=== PATIENT | male | born 1940 | race Caucasian/White ===

== ENCOUNTER → 2021-03-29 | Outpatient (CLI) | payer MEDICARE, BC ==
[~2021-03-29] MED LIST: ASPIRIN E.C. 8181 MG PO; CALCIUM1 CAP PO; DIOVAN/HCT 12.51 TAB PO; EPA FISH OIL1000 MG PO; MULTIPLE VITAMI1 CAP PO; SYNTHROID0.125 MG/T PO
== END ==
LOC: COL.RAD 06:53
DX: R10.13 Epigastric pain (principal); R14.0 Abdominal distension (gaseous)

== ENCOUNTER 2022-07-19 10:50 | Inpatient (IN) | payer MEDICARE, BC ==
[~2022-07-19] VITALS: Ht 172.7 cm; Wt 70.9 kg
[~2022-07-19 10:50] MED LIST changes: +CALCIUM 600 MG1 EAC2 PO; -CALCIUM1 CAP PO; -MULTIPLE VITAMI1 CAP PO; +MULTIPLE VITAMI1 TA5 PO
[2022-07-31 12:04] VITALS: BP 131/73; PULSE 67; TEMP 97.3
--- NOTE | 2022-07-31 12:15 | NUR ---
The patient ambulated back to [place] 2 independenlty using a steady gait and appeared to tolerate the activity well. Vital signs were obtained. Consent signed. 18G IV started in left hand on second attempt, LR Infusing without difficulty. Blood obtained from IV start for type and screen as ordered. Call light is within reach. at bedside. Warm blanket provided. Denies any further needs.
[2022-07-31] MEDS ORDERED: SYNTHROID0.1 MG/TAB PO (12:27)
[2022-07-31] MEDS ORDERED: DIOVAN320 MG PO (12:28)
[2022-07-31] MEDS ORDERED: MASON NATURAL1200 MG PO (12:29)
[2022-07-31] MEDS ORDERED: VITAMIN C500 MG PO (12:30)
--- NOTE | 2022-07-31 12:30 | NUR ---
The patient was taken over via cart to the recovery room to have a nerve block placed prior to surgery. The patient's chart was sent with him. The patient's belongings will be taken over to the recovery room and will be transferred with the patient to the 3rd floor post operatively.
[2022-07-31] MEDS ORDERED: AMITRIPTYLINE H25 M1 PO (12:31)
[2022-07-31] MEDS ORDERED: IRON TABLETS325 MG PO (12:32)
[2022-07-31 17:00] VITALS: BP 117/62; PULSE 54; TEMP 97.5
[2022-07-31 17:15] VITALS: BP 116/64; PULSE 53; TEMP 97.5
--- NOTE | 2022-07-31 17:22 | NUR ---
PT TO ROOM 346 PER BED WITH REPORT FROM PACU @5447, PT IS A/O X3. ABDOMINAL INCISION CDI WITH GAUZE AND TAPE OVER MIDLINE OPEN INCISION. BANDAIDS OVER LAP SITES. SCDS PLACED BILATERALLY, ORIENTED PT AND TO ROOM AND ORDERING MEALS. VSS, ASSESSMENTS COMPLETE.
[2022-07-31 17:32] VITALS: BP 109/66; PULSE 53; TEMP 98
[2022-07-31 17:45] VITALS: BP 122/64; PULSE 54; TEMP 98
[2022-07-31 18:15] VITALS: BP 120/60; PULSE 54; TEMP 98
[2022-08-01] VITALS (7 sets, daily range): BP systolic 96–114; BP diastolic 50–67; PULSE 43–105; TEMP 97.5–99.1
--- NOTE | 2022-08-01 07:05 | NUR ---
resting in bed, bedside shift report received from KEON Coelho
[2022-08-01 07:13] LABS: HEMOGLOBIN 10.3 g/dl (13.5-18.0); MEAN CELL VOLUME 87 fl (80.0-100.0); MEAN CORPUSCULAR HEMOGLOBIN 30 pg (27-31); MEAN CORPUSCULAR HGB CONC 34 g/dl (33.0-37.0); MEAN PLATELET VOLUME 10.5 fl (7.4-10.4); PLATELET COUNT 200 K/mm3 (130-400); RED BLOOD COUNT 3.47 M/mm3 (4.20-5.60); REDCELL DISTRIBUTION WIDTH-CV 14.5 % (11.5-14.5)
[2022-08-01 07:16] LABS: HEMATOCRIT 30.3 % (42.0-52.0)
[2022-08-01 07:20] LABS: CALCIUM 8.3 mg/dL (8.4-10.2); CREATININE, serum 1.45 mg/dL (0.72-1.25); POTASSIUM 4.5 mmol/L (3.5-4.5)
[2022-08-01 08:03] LABS: BAND 13 % (0-10); LYMPHOCYTE 1 % (20.0-51.0); NEUTROPHILS 85 % (42.0-75.2); PLATELET ESTIMATE NORMAL (NORMAL)
--- NOTE | 2022-08-01 08:15 | NUR ---
resting and repositioned in bed, full assessment completed, see interventions for further info, O2 sat 89% on room air, O2 on at 1L/NC and will monitor
--- NOTE | 2022-08-01 10:00 | NUR ---
resting in bed, mcclure catheter discontinued, tolerated well
--- NOTE | 2022-08-01 10:22 | NUR ---
PROFESSOR OF MATHEMATICS in and assisted him out of bed and ambulating in [place], then back to room and sitting up in recliner
--- NOTE | 2022-08-01 10:29 | NUR ---
Initial visit; Patient thanked Entry Level Paralegal for looking in on him and offering God's blessings. Entry Level Paralegal will follow up .
--- NOTE | 2022-08-01 11:44 | NUR ---
remains resting in chair with at bedside, will order lunch in a while
--- NOTE | 2022-08-01 12:05 | NUR ---
IV fluids stopped and to INT
--- NOTE | 2022-08-01 13:18 | NUR ---
bedside shift report given to KEON Recinos
--- NOTE | 2022-08-01 14:13 | NUR ---
Report received from Debby HERBERT. Pt. sitting up in recliner eating a liquid diet tray. Pt. denies pain/discomfort. Call light is in his reach
--- NOTE | 2022-08-01 14:13 | NUR ---
Pt sitting in recliner. He has just finished his lunch tray. He continues to deny pain/discomfort. Midline abd incision covered by air strip dressing that is CDI. Pt. denies additional needs at this time. Call light is in his reach
--- NOTE | 2022-08-01 14:16 | NUR ---
Pt up to ambulate in hallway with PTC
--- NOTE | 2022-08-01 15:57 | NUR ---
Pt up to ambulate in hallway with nurse. Encouraged pt. to try to urinate as mcclure was removed approx 6 hours ago. Will bladder scan if unable to void
--- NOTE | 2022-08-01 16:05 | NUR ---
paste worker met with patient to complete intake and discuss discharge plan. Patient reports that he lives at home with his Chary ([phone]) in [place]. Prior to surgery he reports to being fully independent with his ADL's and does not utilize any DME to assist with mobility. 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 He has access to a FWW due to a previous knee replacement, but does not utilize it. He has no home oxygen needs. PCP is and he utilizes [facility] for prescriptions. Patient does have a DPOA-HC/living will established listing his and a copy can be found in his paper chart. Patient is planning on returning home once medically ready. Discharge plan: Home
--- NOTE | 2022-08-01 16:45 | NUR ---
Pt was able to "dribble" some urine output and had a medium sized bowel movement. Bladder scan done. Post void residual = 130 mL. Encouraged pt to keep hydrating and trying to urinate. Pt reports he is belching and passing flatus. Airstrip dressing to mid abd. incision remains CDI. No pain reported. and daughter are at the bedside. Pt. denies additional needs. Call light is in his reach
--- NOTE | 2022-08-01 18:28 | NUR ---
Pt sitting up in bed watching television. He denies pain/discomfort. Abd. dressing remains CDI. Pt. denying nausea. Denies additional needs. Call light is in his reach. Encouraged pt to continue to hydrate and to call for assistance to the bathroom if he needs to urinate
--- NOTE | 2022-08-01 20:44 | NUR ---
PT A&OX4 RESTING IN BED. PT DENIES PN. ASSESSMENT COMPLETE. ABD INCISION CDI. PT REPORTS BELCHING AND URINATING. TOLERATED DINNER. VS STABLE. LW INT PATENT. NO NEEDS AT THIS TIME. CALL LIGHT WITHIN REACH.
[2022-08-02 05:15] VITALS: BP 103/45; PULSE 104; TEMP 98.5
--- NOTE | 2022-08-02 06:55 | NUR ---
Shift report received from carbon sequestration plant operator RN
--- NOTE | 2022-08-02 06:59 | NUR ---
Shift report received from slot shift supervisor RN
[2022-08-02 07:17] LABS: HEMATOCRIT 25.5 % (42.0-52.0); HEMOGLOBIN 8.7 g/dl (13.5-18.0)
[2022-08-02 07:20] LABS: CALCIUM 7.7 mg/dL (8.4-10.2); CREATININE, serum 1.52 mg/dL (0.72-1.25); POTASSIUM 4.6 mmol/L (3.5-4.5)
[2022-08-02 08:33] VITALS: BP 121/57; PULSE 66; TEMP 98.6
--- NOTE | 2022-08-02 08:49 | NUR ---
Pt was sitting up eating breakfast and reported that he did not sleep well last night d/t frequent hiccups. He reports feeling slight nausea this morning. Hiccups have resolved. PRN Zofran given approx 30 minutes ago.
--- NOTE | 2022-08-02 09:09 | NUR ---
Follow-up visit; Murali having breakfast. He says he hasn't been sleeping very well but seems to be doing as well as can be expected. He thanked Import/Export Analyst for stopping and keeping him in her prayers.
--- NOTE | 2022-08-02 09:30 | NUR ---
Pt. reports that nausea is slowly resolving. Encouraged pt to rest/sleep this morning since he did not sleep well during the night. Pt. agreeable. Pt. will call for assistance if needed. Call light is in his reach
--- NOTE | 2022-08-02 10:32 | NUR ---
Pt. up to ambulate in [place] w/ FWW. He reports that nausea is still present but is still getting better. He reports that his pain level is a little higher today but declines a prn pain pill. He remains on scheduled Tylenol and Motrin. Diet changed to low fiber per dietitian. Pt. denies additional needs. Call light is in his reach.
[2022-08-02 12:16] VITALS: BP 117/56; PULSE 67; TEMP 98.2
[2022-08-02] MEDS ORDERED: TYLENOL 500MG500 MG PO (12:27)
[2022-08-02] MEDS ORDERED: ROXICODONE 55 MG/TAB PO (12:28)
--- NOTE | 2022-08-02 13:15 | NUR ---
Order received to remove abd. dressings and okay for pt. to shower. Midline angeles noted. Single angeles noted to LLQ, LUQ, and RLQ. Incisions are CDI and w/out redness. Pt. showered independently.
--- NOTE | 2022-08-02 13:34 | NUR ---
Pt having coffee ground emesis x 1. Pt. reports feeling nausea, no abd. pain. Dr. Glover notified. New orders received for H/H and Protonix IV (see emar for details) Low fiber dc'd and clears diet restarted per order
[2022-08-02 13:54] LABS: HEMATOCRIT 27.8 % (42.0-52.0); HEMOGLOBIN 9.3 g/dl (13.5-18.0)
--- NOTE | 2022-08-02 14:20 | NUR ---
Pt resting supine in bed. HOB elevated to 30 degrees. He denies abd. pain. No slight nausea. No further emesis at this time
--- NOTE | 2022-08-02 15:40 | NUR ---
Pt lying awake in bed. Pt. stated that he went to the bathroom and had another BM. BM noted on fitted sheet and on the back of pt's boxer. Bed sheet changed and pt assisted with changing into clear boxers. Pt. continues to deny abd. pain. Nausea comes and goes. No further emesis. Pt. denies additional needs. Call light is in his reach
--- NOTE | 2022-08-02 16:11 | NUR ---
Patient presented with MCR.IM form. Education provided and patient verbalizes his agreement with discharge plan. Signed original placed in the patient's chart and copy provided back to the patient.
[2022-08-02 16:39] VITALS: BP 106/61; PULSE 69; TEMP 98
--- NOTE | 2022-08-02 17:30 | NUR ---
Pt sitting up in bed eating his clear liquid dinner. He reports feeling "good" at this time. No further ememsis so far. He is not currently feeling any nausea. No abd. pain. Will continue to monitor
[2022-08-02 19:26] LABS: HEMATOCRIT 26.2 % (42.0-52.0); HEMOGLOBIN 8.8 g/dl (13.5-18.0)
[2022-08-02 20:16] VITALS: BP 106/49; PULSE 59; TEMP 98.3
--- NOTE | 2022-08-02 20:30 | NUR ---
PT SITTING IN RECLINER AT BEDSIDE. DENIES NAUSEA. HAS HICCUPS. INDEPENDENT IN ROOM. PT AWARE HIS DIET WAS DECREASED TO CLEAR LIQUIDS. REPORTS DARK BROWN LOOSE STOOLS.
--- NOTE | 2022-08-02 21:30 | NUR ---
PT IN BED, ABD WITH MIDLINE INCISION APPRAISAL ANALYST WITH OLAF INTACT. HAS 5 ROBOTIC SITES STAPLED AND OPEN TO AIR. PT HAS GOOD BOWEL SOUNDS. DENIES NAUSEA. HS MED GIVEN. INT TO LEFT HAND FLUSHES WELL.
[2022-08-02 23:57] VITALS: BP 108/51; PULSE 61; TEMP 97.6
--- NOTE | 2022-08-03 01:30 | NUR ---
IV PROTONIX GIVEN. HGB=9.3.
[2022-08-03 01:54] LABS: HEMATOCRIT 27.3 % (42.0-52.0); HEMOGLOBIN 9.3 g/dl (13.5-18.0)
[2022-08-03 03:37] VITALS: BP 111/54; PULSE 65; TEMP 98.5
--- NOTE | 2022-08-03 06:32 | NUR ---
PT UP TO BATHROOM WITH WALKER, GAIT STEADY. AM MEDS GIVEN.
[2022-08-03 07:27] VITALS: BP 111/57; PULSE 65; TEMP 97.6
[2022-08-03 07:57] LABS: HEMATOCRIT 22.9 % (42.0-52.0); HEMOGLOBIN 7.9 g/dl (13.5-18.0)
--- NOTE | 2022-08-03 08:23 | NUR ---
SHIFT ASSEMSSMENT PERFORMED. ABD INCISION SITE CDI AND OPEN TO AIR, BOWEL SOUNDS ACTIVE X4 QUADRANTS. PT DENIES PAIN. CALL LIGHT WIHTIN REACH.
--- NOTE | 2022-08-03 10:15 | NUR ---
AGREE WITH LUCERO' POWER TRUCK DRIVER ASSESSMENTS.
[2022-08-03 12:05] VITALS: BP 123/58; PULSE 68; TEMP 97.5
[2022-08-03 13:55] LABS: HEMATOCRIT 26.5 % (42.0-52.0); HEMOGLOBIN 8.7 g/dl (13.5-18.0)
[2022-08-03 16:08] VITALS: BP 118/52; PULSE 65; TEMP 97.5
[2022-08-03 19:49] VITALS: BP 115/54; PULSE 74; TEMP 97.7
[2022-08-03 19:50] LABS: HEMATOCRIT 28.1 % (42.0-52.0); HEMOGLOBIN 9.2 g/dl (13.5-18.0)
--- NOTE | 2022-08-03 20:30 | NUR ---
PT ASKING TO TAKE A SHOWER. INT TO LEFT HAND COVERED, SHOWER SET UP. PT REPORTS ABILITY TO SHOWER HIMSELF.
--- NOTE | 2022-08-03 21:45 | NUR ---
PT SITTING IN CHAIR AT BEDSIDE. DENIES PAIN. INT TO LEFT HAND FLUSHED WITHOUT REDNESS OR SWELLING. HS MED GIVEN. HAD LOW FIBER DIET FOR SUPPER, NO EMESIS.
--- NOTE | 2022-08-03 23:25 | NUR ---
READY FOR BED. ASSISTED WITH COVERS OVER HIS FEET. DENIES PAIN AT THIS TIME.
[2022-08-03 23:31] VITALS: BP 115/49; PULSE 72; TEMP 98
[2022-08-04 03:41] VITALS: BP 127/67; PULSE 77; TEMP 99
--- NOTE | 2022-08-04 06:19 | NUR ---
PT TAKES SCHEDULED AM MEDS WITHOUT PROBLEM. DENIES PAIN AT THIS TIME.
[2022-08-04 08:00] VITALS: BP 119/59; PULSE 70; TEMP 98.2
--- NOTE | 2022-08-04 09:05 | NUR ---
PT INDEPENDENT IN AND OUT OF ROOM. DR. CARTER IN TO SEE PT THIS AM. PT TO DISCHARGE HOME TODAY. MIDLINE INCISION CDI WITH NO DRESSING.
--- NOTE | 2022-08-04 10:24 | NUR ---
DISCHARGE INSTRUCTIONS REVIEWED WITH PT AND .INT DISCONTINUED PT TOLERATED WELL.
== END 2022-08-04 10:20 | disposition home or self-care (01) | DRG 330 ==
LOC: INPTSU 07-31 11:22 → SURG 07-31 13:30
PROVIDERS: ADMIT Surgery
PROC: 8E0W0CZ Robotic Assisted Procedure of Trunk Region, Open Approach (ICD-10-PCS; 2022-07-31)
PROC: 0DTF0ZZ Resection of Right Large Intestine, Open Approach (ICD-10-PCS; principal; 2022-07-31 13:30)
DX: C18.4 Malignant neoplasm of transverse colon (principal); K92.0 Hematemesis; C48.1 Malignant neoplasm of specified parts of peritoneum; D72.829 Elevated white blood cell count, unspecified; M19.90 Unspecified osteoarthritis, unspecified site; I10 Essential (primary) hypertension; E03.9 Hypothyroidism, unspecified; D50.9 Iron deficiency anemia, unspecified; Z79.890 Hormone replacement therapy
CPT/HCPCS: A4314; A9284; C9113; J0690; J1100; J1170; J2250; J2370; J2405; J2704; J2795; J3010; J7120

== ENCOUNTER → 2022-07-25 | Day surgery (SDC) | payer MEDICARE, BC ==
[~2022-07-25] MED LIST changes: +AMITRIPTYLINE H25 M1 PO; +DIOVAN320 MG PO; +IRON TABLETS325 MG PO; +MASON NATURAL1200 MG PO; +ROXICODONE 55 MG/TAB PO; +SYNTHROID0.1 MG/TAB PO; +TYLENOL 500MG500 MG PO; +VITAMIN C500 MG PO
== END ==
LOC: COL.RAD 06:58
DX: C18.9 Malignant neoplasm of colon, unspecified (principal); K63.89 Other specified diseases of intestine; R59.9 Enlarged lymph nodes, unspecified
CPT/HCPCS: Q9967

== ENCOUNTER 2022-12-26 10:37 | Emergency (ER) | payer MEDICARE, BC ==
[~2022-12-26] VITALS: Ht 170.2 cm; Wt 65.9 kg
[~2022-12-26 10:37] MED LIST changes: +AVASTIN 100M25 MG/ML; +CALCIUM CITRATE1 TA7 PO; +COMPAZINE 110 MG/TAB; +EPA FISH OIL1 SGL PO; +FLUOROURACIL50 MG/ML; +LEUCOVORIN CAL200 MG; +MAG-OX 400400 MG/TAB PO; +NATURAL IRON65 MG PO; +QUESTRAN4 GM/9 GM PO; +SODIUM BICARBO650 MG PO; +TIROSINT100 MC1 PO; +VANCOCIN H125 MG/CAP PO; +VANCOCIN H250 MG/CAP PO; +ZOFRAN ODT4 MG PO; +[UNRECOGNIZED DRUG - OTHER]
[2022-12-26 10:39] VITALS: TEMP 97.5
[2022-12-26 11:30] LABS: BASO % 0.4 % (0.0-2.0); EOS # 0.1 K/mm3 (0.0-0.7); EOS % 1.7 % (0.0-4.0); GRAN # 3.7 K/mm3 (1.4-6.5); LYMPH # 0.4 K/mm3 (1.2-3.4); LYMPH % 7.8 % (20.0-51.0); MEAN CELL VOLUME 102 fl (80.0-100.0); MEAN CORPUSCULAR HGB CONC 34 g/dl (33.0-37.0); MEAN PLATELET VOLUME 9.2 fl (7.4-10.4); MONO # 0.5 K/mm3 (0.1-0.6); MONO % 9.9 % (1.7-9.3); PLATELET COUNT 165 K/mm3 (130-400); REDCELL DISTRIBUTION WIDTH-CV 14.5 % (11.5-14.5)
[2022-12-26 11:33] LABS: HEMATOCRIT 27.4 % (42.0-52.0); HEMOGLOBIN 9.3 g/dl (13.5-18.0); MEAN CORPUSCULAR HEMOGLOBIN 34 pg (27-31)
[2022-12-26 11:41] LABS: ALANINE AMINOTRANSFERASE 8 U/L (0-55); ALBUMIN 2.9 gm/dL (3.4-4.8); ALKALINE PHOSPHATASE 69 U/L (40-150); AST,SGOT 16 U/L (5-34); BILIRUBIN,TOTAL 0.5 mg/dL (0.2-1.2); BLOOD UREA NITROGEN 11 mg/dL (8-26); CALCIUM 8.6 mg/dL (8.4-10.2); CARBON DIOXIDE 22 mmol/L (23-31); CREATININE, serum 0.81 mg/dL (0.72-1.25); GLUCOSE 119 mg/dL (70-99); TOTAL PROTEIN 5.7 gm/dL (6.2-8.1)
[2022-12-26 11:47] LABS: INR 1.1 (0.8-3.0); PROTHROMBIN TIME 12.8 SECONDS (9.7-12.8)
[2022-12-26 11:51] LABS: ANION GAP 10 mmol/L (7-16); CHLORIDE 99 mmol/L (98-107); POTASSIUM 3.4 mmol/L (3.5-4.5); SODIUM 131 mmol/L (136-145)
[2022-12-26 12:01] LABS: TSH w REFLEX 12.199 uIU/mL (0.350-4.940)
[2022-12-26 12:05] LABS: TROPONIN-I < 0.010 ng/mL (0.00-0.033)
[2022-12-26 12:09] LABS: COLLECTION METHOD CLEAN CATCH
[2022-12-26 12:33] LABS: SQUAMOUS EPITHELIAL None Seen /hpf (0-10); URINE BACTERIA None Seen /hpf (NONE SEEN); URINE RBC None Seen /hpf (0-2)
[2022-12-26 12:34] LABS: PH 6.5 (5.0-8.5); URINE APPEARANCE Clear (CLEAR/HAZY); URINE BLOOD Negative (NEGATIVE); URINE COLOR Yellow (YELLOW); URINE GLUCOSE Negative (NEGATIVE); URINE KETONE Negative (NEGATIVE); URINE NITRATE Negative (NEGATIVE); URINE PROTEIN(semi-quant) Negative (NEGATIVE); URINE UROBILINOGEN 0.2 E.U/dL (0.2-1.0)
[2022-12-26 17:49] VITALS: BP 114/80; PULSE 62
== END 2022-12-26 18:14 | disposition short-term general hospital (02) ==
LOC: COL.ER 10:37
PROVIDERS: Emergency Medicine
DX: S06.5XAA Traumatic subdural hemorrhage with loss of consciousness status unknown, initial encounter (principal); D64.9 Anemia, unspecified; D72.819 Decreased white blood cell count, unspecified; Z85.038 Personal history of other malignant neoplasm of large intestine; Z79.899 Other long term (current) drug therapy; W18.30XA Fall on same level, unspecified, initial encounter; Y92.009 Unspecified place in unspecified non-institutional (private) residence as the place of occurrence of the external cause

== ENCOUNTER 2023-01-02 14:52 | Inpatient (IN) | payer MEDICARE, BC ==
[~2023-01-02] VITALS: Ht 170.2 cm; Wt 62.4 kg
--- NOTE | 2023-01-02 16:23 | NUR ---
Pt arrives to room 336 via WC from [facility]. Transport via POV by . Ox4, VSS, RA, denies pain. Marleny to surgical incision intact from medial top of head along lateral R side, MANUFACTURING TECH. Medial crown of head, d/c drain site with sutures intact, no drainage, NORBERT. Sewell with clear yellow urine to dependant drainage bag. Sewell placed during surgery at [facility]. All skin intact except 1cm non-draining, Stage II pressure injury to coccyx. Wound bed pink/blanchable. Covered with mepilex. Noted to have several dried scabs to L arm from previous falls.
[2023-01-02 17:04] VITALS: BP 125/70; PULSE 84; TEMP 97.7
[2023-01-02] MEDS ORDERED: PRAMOXINE TP (17:35)
[2023-01-02] MEDS ORDERED: HYDROCORTISONE TP (17:35)
[2023-01-02] MEDS ORDERED: SYNTHROID0.125 MG/T PO (17:36)
[2023-01-02] MEDS ORDERED: KEPPRA 500MG500 MG PO (17:36)
[2023-01-02] MEDS ORDERED: AMITRIPTYLINE H25 M1 PO (17:37)
[2023-01-02] MEDS ORDERED: OSCAL 500 TAB500 MG PO (17:38)
[2023-01-02] MEDS ORDERED: FERROUS SU325 MG/TAB PO (17:38)
[2023-01-02] MEDS ORDERED: MULTI-VITAMIN W1 TA1 PO (17:39)
[2023-01-02] MEDS ORDERED: DIOVAN320 MG PO (17:39)
[2023-01-02] MEDS ORDERED: VITAMIN C500 MG PO (17:39)
--- NOTE | 2023-01-02 20:03 | NUR ---
PT PUT IN DINNER ORDER TO KITCHEN. NO TRAY DELIVERED. PROVIDED LUNCH BOX.
--- NOTE | 2023-01-02 21:00 | NUR ---
PT RESTING IN BED. A&OX4. DENIES PAIN. HS CARES/ CATH CARE DONE. PT HAS INTERNAL HEMORRHOIDS- SEE MAR FOR MED. SEIZURE PRECAUTIONS. CALL IGHT IN REACH. BED ALARM SET.
[2023-01-03 05:47] VITALS: BP 125/56; PULSE 47; TEMP 99
--- NOTE | 2023-01-03 09:23 | NUR ---
PATIENT ALERT AND ORIENTED X4. VSS. PATIENT HERE FOR SUBDURAL HEMATOMA, S/P FALL, S/P RIGHT CRANIOTOMY. PATIENT DENIES PAIN. SLIGHTLY ELEVATED TEMP NOTED THIS AM FROM BLUEPRINTING AND PHOTOCOPY SUPERVISOR. TEMP CHECKED, 97.9. DUNHAM TO DD WITH YELLOW OUTPUT. PORTACATH IN LEFT UPPER CHEST, NOT ACCESSED. LEFT ANKLE APPEARS TO BE SWOLLEN, NOTING 2+ EDEMA. PATIENT REPORTS UPON PALPATION. PATIENT UP WITH THERAPY. CALL LIGHT IN REACH.
--- NOTE | 2023-01-03 10:40 | NUR ---
Has lack of transportation kept you from medical appts, meetings, work, or from getting things needed for daily living? NO How often do you feel lonely or isolated from those around you? NEVER Over the past 5 days, how much of the time has pain made it hard for you to sleep? RARELY/NOT AT ALL Over the past 5 days, how often have you limited your participation in therapy due to pain? OCCASIONALLY Over the past 5 days, how often have you limited your day-to-day activities because of pain? RARELY/NOT AT ALL Have you had 2 or more falls in the past year or any fall with an injury? YES Did you have major surgery during the 100 days prior to admission? YES
--- NOTE | 2023-01-03 13:12 | NUR ---
VOLTAREN GEL AND ICE PACK ORDERED FOR LEFT LOWER EXTREMITY SWELLING/PAIN.
--- NOTE | 2023-01-03 15:51 | NUR ---
DUNHAM CATHETER REMOVED. PATIENT INSTRUCTED TO UTILIZE URINAL IF NEEDED. PATIENT IN BED.
--- NOTE | 2023-01-03 16:19 | NUR ---
SW contacted the patient to complete intake. The patient lives in [place] with his , Janet (ph#[phone]). He reports needing assistance with some ADLs before being admitted and has a walker. He states that his was helping him. The patient's PCP is Dr. Fidencio Maradiaga and he receives his medications from [facility]. The patient's DPOA-HC is in EMR and it designates his . The patient shares that he is doing as well as he can. He was a little tired after his therapy sessions and took a nap. He had no concerns for SW at this time.
[2023-01-03 18:12] VITALS: BP 137/57; PULSE 78; TEMP 98.1
--- NOTE | 2023-01-03 19:20 | NUR ---
RECEIVED CHANGE OF SHIFT REPORT FROM DAY SHIFT RN.
--- NOTE | 2023-01-04 03:46 | NUR ---
PATIENT REPORTED SPILLING OF URINE AFTER VOIDING IN URINAL BUT NEEDING TO HAVE BM, AMBULATED TO BATHROOM, HAD INCONTINENT SMALL BM OBSEVED IN DISPOSABLE BRIEFS AND PATIENT REPORTED "I THINK IT'S ALREADY STARTING TO COME OUT". PATIENT TOLERATED BRP TRIP/CLEAN UP WITH STAFF PERFORMING OVER HALF OF INCONTINENT/PERICARE. PATIENT REQUIRING CUES IN WW USE DURING AMBULATION/GAIT, GAIT STEADY STRIDE. EXIT ALARM ON WHEN BACK IN BED, CALL LIGHT IN REACH.
[2023-01-04 05:08] VITALS: BP 129/58; PULSE 62; TEMP 97.9
[2023-01-04 06:25] LABS: CALCIUM 8.3 mg/dL (8.4-10.2); CREATININE, serum 0.8 mg/dL (0.72-1.25)
--- NOTE | 2023-01-04 07:14 | NUR ---
CHANGE OF SHIFT REPORT GIVEN TO DAY SHIFT RNKATHY.
[2023-01-04 07:53] VITALS: BP 124/66; PULSE 61; TEMP 99.1
--- NOTE | 2023-01-04 08:01 | NUR ---
Shift report received from shift nurse manager RN.
--- NOTE | 2023-01-04 08:37 | NUR ---
Pt sitting up in bed. He has just finished eating breakfast independently. He reports minimal pain to his left ankle. Left ankle with 2+ pitting edema w/o redness or warmth. Encouraged pt to keep LLE elevated on pillows as initiated by surface boss RN. Voltaren gel applied as ordered. Castella to right scalp are CDI. Sutures x 1 to top of scalp CDI. OT in room to assist pt out of the bed for a shower.
[2023-01-04] MEDS ORDERED: VITAMIN C500 MG PO (10:23)
[2023-01-04 11:51] VITALS: BP 125/67; PULSE 70; TEMP 97.8
--- NOTE | 2023-01-04 12:09 | NUR ---
Pt sitting up in recliner with BLE elevated on the footrest. He reports that his pain is "not much" to LLE. Edema remains to LLE; pillow placed underneath LLE. Voltaren gel applied per order. Pt denies additional needs. Call light is in his reach. Chair alarm is on.
[2023-01-04 12:14] VITALS: TEMP 98.1
--- NOTE | 2023-01-04 16:36 | NUR ---
Pt sitting up in recliner visiting with his . LLE remains w/ 2+ pitting edema. Left ankle feels "sore" especially w/ weight bearing activities. Ice pack and/or PRN Tylenol offered and declined by the pt. Voltaren gel applied as ordered. Pt denies additional needs. Call light is in his reach. Chair alarm is on.
[2023-01-04 17:12] VITALS: BP 129/62; PULSE 87; TEMP 97.5
--- NOTE | 2023-01-04 19:19 | NUR ---
RECEIVED CHANGE OF SHIFT REPORT FROM DAY SHIFT RN.
[2023-01-05 04:44] VITALS: BP 131/64; PULSE 68; TEMP 97.6
--- NOTE | 2023-01-05 06:38 | NUR ---
CHANGE OF SHIFT REPORT GIVEN TO DAY SHIFT RN.
--- NOTE | 2023-01-05 06:48 | NUR ---
Shift report received from balloon dipper RN.
--- NOTE | 2023-01-05 10:24 | NUR ---
Pt supervised as he stood up independently from bed and ambulated w/ a FWW to the bathroom. Min asst provided w/ bathroom hygiene. Mepilex to coccyx is CDI. Pt supervised as he completed oral hygiene while standing at the sink. Min asst provided for upper/lower body dressing. Pt sitting up in recliner now w/ BLE elevated on footrest. Left ankle remains w/ 2+ pitting edema and pt reports that weight bearing has been painless so far. Denies pain w/ left ankle ROM. Pt denies additional needs. Call light is in his reach. Chair alarm is on.
--- NOTE | 2023-01-05 14:37 | NUR ---
Pt resting supine in bed reading a newspaper w/ HOB elevated to approx 45 degrees. LLE elevated on pillows x 2. Pt continues to report that left ankle ROM is painless today and has not had any pain w/ weight bearing so far today. He denies other needs. Call light is in his reach. Bed alarm is on.
[2023-01-05 16:58] VITALS: BP 131/64; PULSE 80; TEMP 98.1
[2023-01-06 05:19] VITALS: BP 113/59; PULSE 62; TEMP 98
--- NOTE | 2023-01-06 06:53 | NUR ---
BEDSIDE REPORT DONE ORDER WITH NIGHT NURSE DAVID
--- NOTE | 2023-01-06 10:49 | NUR ---
ASSESSMENT DONE ORDER .PATIENT ALERT AND ORIENTED X 4. LUNG CLEAR IN ALL LOBES BOWEL SOUND ACTIVE IN ALL 4 QUADS.
--- NOTE | 2023-01-06 14:44 | NUR ---
Admission QIM scores were reviewed by the team. Code of 4 chosen for oral hygiene was determined by team discussion to be the most usual performance before interventions for this patient during the assessment period. Code of 3 chosen for toilet hygiene was determined by team discussion to be the most usual performance before interventions for this patient during the assessment period. Code of 3 chosen for shower/bathe self was determined by team discussion to be the most usual performance before interventions for this patient during the assessment period. Code of 3 chosen for upper body dressing was determined by team discussion to be the most usual performance before interventions for this patient during the assessment period. Code of 3 chosen for putting on/taking off footwear was determined by team discussion to be the most usual performance before interventions for this patient during the assessment period. Code of 3 chosen for sit to lying was determined by team discussion to be the most usual performance before interventions for this patient during the assessment period. Code of 3 chosen for sit to stand was determined by team discussion to be the most usual performance for this patient during the discharge assessment period. Code of 3 chosen for chair/bed to chair transfer was determined by team discussion to be the most usual performance before interventions for this patient during the assessment period. Code of 3 chosen for walk 50 feet w/ 2 turns was determined by team discussion to be the most usual performance before interventions for this patient during the assessment period.--PD Abraham
[2023-01-06 17:05] VITALS: BP 154/72; PULSE 92; TEMP 99.5
--- NOTE | 2023-01-06 18:23 | NUR ---
PATIENT HAS BEEN UP AND DOWN TODAY USING THE RESTROOM.FINALLY HAD A BOWEL MOVEMENT. NO PAIN NOTED. SLIGHTLY UNSTEADY GAIT NOTED.
[2023-01-07 05:27] VITALS: BP 117/50; PULSE 63; TEMP 97.7
--- NOTE | 2023-01-07 06:48 | NUR ---
BEDSIDE REPORT DONE WITH NIGHT NURSE
--- NOTE | 2023-01-07 10:07 | NUR ---
ASSESSMENT DONE ORDER. PATIENT ALERT AND ORIENTED X 3.PATIENT ABLE TO GET UP WITH STAND BY ASSISTANCE AND GAIT BELT. BUT NOTICES THAT PATIENT LIKE TO LEND WHEN WALKING. INFORM PT REGARDING IT. PATIENT ABLE TO TAKE MEDICATION WHO WITH NO ISSUE. WILL CONTINUE TO MONITOR PATIENT
--- NOTE | 2023-01-07 13:43 | NUR ---
The team would like to set up a patient/family meeting. SW contacted the patient's , Janet, and scheduled a patient/family meeting for tomorrow, 01/08, at 1015. SW updated IPR Director.
[2023-01-07 17:49] VITALS: BP 133/68; PULSE 83; TEMP 98
--- NOTE | 2023-01-07 18:52 | NUR ---
RECEIVED CHANGE OF SHIFT REPORT FROM DAY SHIFT RN.
[2023-01-07 23:00] VITALS: BP 120/51; PULSE 73; TEMP 98
--- NOTE | 2023-01-07 23:05 | NUR ---
C/O HEADACHED TO TOP OF HEAD, SEE MEDITECH FOR VS TAKEN. SEE MAR FOR TYLENOL GIVEN. NO OTHER NEEDS REPORTED.
[2023-01-08 04:49] VITALS: BP 114/55; PULSE 61; TEMP 97.8
--- NOTE | 2023-01-08 06:50 | NUR ---
BEDSIDE REPORT DONE WITH KAMILA NIGHT NURSE
--- NOTE | 2023-01-08 07:10 | NUR ---
CHANGE OF SHIFT REPORT GIVEN TO DAY SHIFT RNCARROLL.
--- NOTE | 2023-01-08 08:30 | NUR ---
NIGHT NURSE INFORM THAT HE WAS UP AND DOWN ALL LAST NIGHT USING THE RESTROOM. SPOKE WITH DR LUTHER REGARDING IT AND HE WILL ORDER A UA
--- NOTE | 2023-01-08 09:07 | NUR ---
ASSESMENT DONE ORDER. PATIENT ALERT AND ORIENTED. LUNG CLEAR. IN ALL LOBES. BOWEL SOUND ACTIVE IN ALL 4 QUADS. PATIENT HAD A LARGE BOWEL MOVEMENT EARLY AM. NO HEADACHE THIS AM. ALREADY WENT TO THE BATHROOM THIS AM. USE WALKER FOR STABLITY.
[2023-01-08 10:14] LABS: BASO % 0.7 % (0.0-2.0); EOS # 0.1 K/mm3 (0.0-0.7); EOS % 3.1 % (0.0-4.0); GRAN # 3.4 K/mm3 (1.4-6.5); GRAN % 75.5 % (42.2-75.2); LYMPH # 0.5 K/mm3 (1.2-3.4); LYMPH % 10.8 % (20.0-51.0); MEAN CELL VOLUME 99 fl (80.0-100.0); MEAN CORPUSCULAR HGB CONC 33 g/dl (33.0-37.0); MONO # 0.4 K/mm3 (0.1-0.6); MONO % 9.5 % (1.7-9.3); PLATELET COUNT 229 K/mm3 (130-400); RED BLOOD COUNT 2.71 M/mm3 (4.20-5.60); REDCELL DISTRIBUTION WIDTH-CV 13.4 % (11.5-14.5)
[2023-01-08 10:15] LABS: HEMATOCRIT 26.7 % (42.0-52.0); HEMOGLOBIN 8.9 g/dl (13.5-18.0); MEAN CORPUSCULAR HEMOGLOBIN 33 pg (27-31)
[2023-01-08 10:33] LABS: CALCIUM 8.7 mg/dL (8.4-10.2); CREATININE, serum 0.89 mg/dL (0.72-1.25); POTASSIUM 3.9 mmol/L (3.5-4.5)
[2023-01-08 11:50] LABS: COLLECTION METHOD CLEAN CATCH
[2023-01-08 12:16] LABS: MUCOUS Present (NOT PRESENT); SQUAMOUS EPITHELIAL None Seen /hpf (0-10); URINE BACTERIA None Seen /hpf (NONE SEEN); URINE RBC None Seen /hpf (0-2)
[2023-01-08 12:17] LABS: URINE APPEARANCE Clear (CLEAR/HAZY); URINE BLOOD Negative (NEGATIVE); URINE COLOR Yellow (YELLOW); URINE GLUCOSE Negative (NEGATIVE); URINE KETONE Negative (NEGATIVE); URINE NITRATE Negative (NEGATIVE); URINE PROTEIN(semi-quant) Negative (NEGATIVE); URINE UROBILINOGEN 0.2 E.U/dL (0.2-1.0)
--- NOTE | 2023-01-08 15:01 | NUR ---
ALEXANDER attended the patient/family meeting. The patient's , Janet, and daughter were at bedside. Also present was IPR Director, PT, OT, and ST. IPR Director started by explaining the purpose of the meeting. PT/OT/ST then discussed the patient's progress so far. The team has set a discharge date for this Friday, 01/10, with home health PT/OT/ST. The patient and his family are in agreement to the plan. The team answered all questions. ALEXANDER then followed up with the patient and presented and reviewed the IPR Team Conference Note with him. ALEXANDER provided him with Medicare.gov's list of home health agencies that serve [place]. The patient chose [facility]. ALEXANDER contacted and faxed a referral to [facility] at [facility]. Truong reports that they are able to accept the patient.
[2023-01-08 16:50] VITALS: BP 120/85; PULSE 76; TEMP 99
--- NOTE | 2023-01-08 18:42 | NUR ---
DOCTOR ORDER A UA AND IT CAME BACK NORMAL. DOCTOR IS AWARE ABOUT THE HEADACHE AND INVOLUNTARY MOVEMENT.HE SAID TO MONITOR IT. PATIENT WILL BE DISCHARGE THIS FRIDAY.SCHEDULE APPOINTMENT FOR CT SCAN AND TO SEE DR MUKHERJEE RIGHT AFTER. I ALSO SCHEDULE APPOINTMENT TO SEE DR VINCENT
--- NOTE | 2023-01-08 19:00 | NUR ---
RECEIVED CHANGE OF SHIFT REPORT FROM DAY SHIFT RN. PATIENT UP IN CHAIR DURING REPORT, EXIT ALARM ON, CALL LIGHT IN REACH.
[2023-01-09 05:14] VITALS: BP 108/54; PULSE 63; TEMP 98.3
--- NOTE | 2023-01-09 07:08 | NUR ---
Shift report received from night patrol inspector RN.
--- NOTE | 2023-01-09 07:12 | NUR ---
CHANGE OF SHIFT REPORT GIVEN TO DAY SHIFT RNKATHY.
--- NOTE | 2023-01-09 08:07 | NUR ---
Pt sitting up in recliner. He has just finished eating 100% of breakfast independently. Pt supervised as he stood independently from the recliner to FWW and ambulated back to bed. Pt was able to independently move from sitting to lying position in bed. LLE elevated on pillow x 1. No noted swelling to left ankle - pt reports having no pain this moring. He denies additional needs. Call light is in his reach. Bed alarm is on.
--- NOTE | 2023-01-09 09:14 | NUR ---
Pt off the unit for OT.
--- NOTE | 2023-01-09 09:42 | NUR ---
Pt is back in his room after OT. He is sitting up in bed reading a newspaper. He denies left ankle pain after being up with therapy. No additional needs. Call light is in his reach. Bed alarm is on.
--- NOTE | 2023-01-09 15:02 | NUR ---
SW met with the patient and presented and read the IM form outloud to him. The patient verbalized understanding and signed the form. SW provided him with a copy.
[2023-01-09 17:24] VITALS: BP 131/64; PULSE 76; TEMP 97.8
--- NOTE | 2023-01-09 19:00 | NUR ---
RECEIVED CHANGE OF SHIFT REPORT FROM DAY SHIFT RN..
--- NOTE | 2023-01-10 00:01 | NUR ---
REQUESTED AND GIVEN TYLENOL FOR SLEEP. DENIES PAIN/CHEST PAIN/NAUSEA AT THIS TIME.
--- NOTE | 2023-01-10 00:36 | NUR ---
PATIENT RESTING IN BED WITH EXIT ALARM ON AND CALL LIGHT IN REACH.
[2023-01-10 05:29] VITALS: BP 124/62; PULSE 57; TEMP 98.9
--- NOTE | 2023-01-10 06:53 | NUR ---
CHANGE OF SHIFT REPORT GIVEN TO DAY SHIFT RNKATHY.
--- NOTE | 2023-01-10 07:01 | NUR ---
Shift report received from rn shift mgr RN.
--- NOTE | 2023-01-10 08:17 | NUR ---
Pt sitting up in bed after eating 100% of his breakfast. Pt denies left ankle pain. No LLE swelling noted. Voltaren gel applied as ordered. Pt is looking forward to discharging home today. He denies other needs. Call light is in his reach. Bed alarm is on.
[2023-01-10] MEDS ORDERED: VOLTAREN GEL 1%1 TU TP (09:49)
[2023-01-10] MEDS ORDERED: SYNTHROID0.125 MG/T PO (09:50)
--- NOTE | 2023-01-10 11:53 | NUR ---
Pt sitting up in the recliner and was supervised as he stood up and ambulated to the bathroom using a FWW. He continues to report that his left ankle pain is resolved for now. No noted swelling. Pt's plans to arrive between [id number] to take pt home today. Pt supervised as he stood at the sink to wash his hands and then return to the recliner to eat lunch. He denies additional needs. Call light is in his reach. Chair alarm is on.
--- NOTE | 2023-01-10 12:44 | NUR ---
The patient is to discharge back home with this today, 01/10, with home health services for snf/PT/OT/ST from [facility]. ALEXANDER notified and faxed orders to [facility] at [facility]. No additional needs at this time.
--- NOTE | 2023-01-10 13:09 | NUR ---
Discharge QIM scores were reviewed by the team. Code of 6 chosen for toilet hygiene was determined by team discussion to be the most usual performance for this patient during the discharge assessment period. Code of 6 chosen for toilet transfer was determined by team discussion to be the most usual performance for this patient during the discharge assessment period. Code of 6 chosen for shower/bathe self was determined by team discussion to be the most usual performance for this patient during the discharge assessment period. Code of 6 chosen for upper body dressing was determined by team discussion to be the most usual performance for this patient during the discharge assessment period. Code of 6 chosen for lower body dressing was determined by team discussion to be the most usual performance for this patient during the discharge assessment period. Code of 6 chosen for putting on/taking off footwear was determined by team discussion to be the most usual performance for this patient during the discharge assessment period. Code of 6 chosen for sit to stand was determined by team discussion to be the most usual performance for this patient during the discharge assessment period. Code of 6 chosen for chair/bed to chair transfer was determined by team discussion to be the most usual performance for this patient during the discharge assessment period. Code of 6 chosen for walk 10 feet was determined by team discussion to be the most usual performance for this patient during the discharge assessment period. Code of 6 chosen for walk 50 feet w/ 2 turns was determined by team discussion to be the most usual performance before interventions for this patient during the discharge assessment period. Code of 6 chosen for walk 150 feet was determined by team discussion to be the most usual performance for this patient during the discharge assessment period.--Patience Cooper,
--- NOTE | 2023-01-10 13:19 | NUR ---
Has lack of transportation kept you from medical appts, meetings, work, or from getting things needed for daily living? NO How often do you feel lonely or isolated from those around you? RARELY Over the past 5 days, how much of the time has pain made it hard for you to sleep? OCCASIONALLY Over the past 5 days, how often have you limited your participation in therapy due to pain? RARELY/NOT AT ALL Over the past 5 days, how often have you limited your day-to-day activities because of pain? RARELY/NOT AT ALL
--- NOTE | 2023-01-10 17:42 | NUR ---
DC Summary, Home Meds, Follow up appointments reviewed with the pt, , and daughter. They had no further questions. Belongings were gathered by the daughter. Pt escorted off unit by wheelchair and was accompanied by FILLETER.
== END 2023-01-10 17:15 | disposition home health service (06) | DRG 92 ==
PROVIDERS: Physician Assistant; ADMIT Physical Medicine & Rehabilitation Sports Medicine
DX: R29.6 Repeated falls (principal); E87.1 Hypo-osmolality and hyponatremia; R53.81 Other malaise; R26.89 Other abnormalities of gait and mobility; I10 Essential (primary) hypertension; E03.9 Hypothyroidism, unspecified; D50.9 Iron deficiency anemia, unspecified; L89.152 Pressure ulcer of sacral region, stage 2; M89.8X7 Other specified disorders of bone, ankle and foot; R35.0 Frequency of micturition; E87.6 Hypokalemia; R41.89 Other symptoms and signs involving cognitive functions and awareness; Z92.21 Personal history of antineoplastic chemotherapy; Z85.038 Personal history of other malignant neoplasm of large intestine; Z48.815 Encounter for surgical aftercare following surgery on the digestive system; Z73.6 Limitation of activities due to disability
CPT/HCPCS: A9284; J1650

== ENCOUNTER → 2023-02-06 | Outpatient (CLI) | payer MEDICARE, BC ==
[~2023-02-06] MED LIST changes: +FERROUS SU325 MG/TAB PO; +HYDROCORTISONE TP; +KEPPRA 500MG500 MG PO; +MULTI-VITAMIN W1 TA1 PO; +OSCAL 500 TAB500 MG PO; +PRAMOXINE TP; +VOLTAREN GEL 1%1 TU TP
== END ==
LOC: COL.RAD 02-04 09:30
DX: K44.9 Diaphragmatic hernia without obstruction or gangrene (principal); Z90.49 Acquired absence of other specified parts of digestive tract; Z98.890 Other specified postprocedural states; C18.3 Malignant neoplasm of hepatic flexure
CPT/HCPCS: Q9967

== ENCOUNTER → 2023-11-21 | Outpatient (CLI) | payer MEDICARE, BC | LOC: COL.RAD 07:52 | DX: K44.9 Diaphragmatic hernia without obstruction or gangrene (principal); C18.3 Malignant neoplasm of hepatic flexure | CPT/HCPCS: J1644; Q9967 ==

== ENCOUNTER → 2024-08-26 | Outpatient (CLI) | payer MEDICARE, BC ==
[~2024-08-26] MED LIST changes: +Barium Sulfate 2% Oral Susp 450 ML X 2 BOTTLES PO SCH; +Iohexol 300 - 100 ML VIAL IV ONE; +NS 100 ML IV SCH
== END ==
LOC: COL.RAD 08:41
DX: C18.3 Malignant neoplasm of hepatic flexure (principal)
CPT/HCPCS: Q9967